=== PATIENT | male | born 1950 | race Caucasian/White ===

== ENCOUNTER → 2018-07-22 | Outpatient (CLI) | payer OTHER ==
[~2018-07-22] MED LIST: ASPI325EC PO; ATOR10 PO; DIOVAN HCT PO; HYDR1TAB94 PO; OXYC5 PO; PROM25 PO
[2018-07-22 15:28] LABS: Microalb/Creat Ratio UR, Rand 8.108 mg/g (0.000-30.000)
== END | disposition home or self-care (01) ==
LOC: EDSTATUS 10:16 → LAB 14:18 → LAB SHORT 14:18
PROVIDERS: Internal Medicine
DX: R97.20 Elevated prostate specific antigen [PSA] (principal); E11.9 Type 2 diabetes mellitus without complications; I10 Essential (primary) hypertension; E78.5 Hyperlipidemia, unspecified; Z79.899 Other long term (current) drug therapy
CPT/HCPCS: 82043; 82570

== ENCOUNTER 2019-04-28 09:03 | Day surgery (SDC) | payer OTHER ==
[~2019-04-28] VITALS: Ht 175.3 cm; Wt 186.0 kg
[~2019-04-28 09:03] MED LIST changes: +ADVIL LIQUI-GE200 MG; +Aspir 8181 MG; +IRBESARTAN-HCT1 EAC1
== END 2019-04-28 11:42 | disposition home or self-care (01) ==
LOC: ORSCSDS 09:03
PROVIDERS: Internal Medicine Gastroenterology
PROC: 0DJD8ZZ Inspection of Lower Intestinal Tract, Via Natural or Artificial Opening Endoscopic (ICD-10-PCS; principal; 2019-04-28 10:15)
DX: Z12.11 Encounter for screening for malignant neoplasm of colon (principal); Z86.010 Personal history of colon polyps; K57.30 Diverticulosis of large intestine without perforation or abscess without bleeding; Z87.891 Personal history of nicotine dependence; Z79.82 Long term (current) use of aspirin; Z79.899 Other long term (current) drug therapy
CPT/HCPCS: J2704; J7120

== ENCOUNTER → 2021-03-02 | Outpatient (CLI) | payer OTHER ==
[2021-03-02 13:02] LABS: Microalb/Creat Ratio UR, Rand 5.578 mg/g (0.000-30.000); Microalbumin, Random Urine 8.59 mg/L (0.000-20.000)
== END | disposition home or self-care (01) ==
LOC: LAB SHORT 11:04
PROVIDERS: Internal Medicine
DX: E78.5 Hyperlipidemia, unspecified (principal); E11.9 Type 2 diabetes mellitus without complications
CPT/HCPCS: 82043; 82570

== ENCOUNTER → 2022-08-14 | Outpatient (CLI) | payer OTHER ==
[2022-08-14 20:47] LABS: Microalb/Creat Ratio UR, Rand 9.883 mg/g (0.000-30.000); Microalbumin, Random Urine 25.4 mg/L (0.000-20.000)
== END | disposition home or self-care (01) ==
LOC: LAB SHORT 09:00
PROVIDERS: Internal Medicine
DX: E11.8 Type 2 diabetes mellitus with unspecified complications (principal); R97.20 Elevated prostate specific antigen [PSA]; G60.9 Hereditary and idiopathic neuropathy, unspecified
CPT/HCPCS: 82043; 82570